=== PATIENT | female | born 1940 | race Two or more races ===

== ENCOUNTER 2017-06-10 07:50 | Outpatient (CLI) | payer OTHER | END 2017-06-10 07:53 | disposition home or self-care (01) | LOC: RAD 07:50 | DX: Z01.818 Encounter for other preprocedural examination (principal) ==

== ENCOUNTER 2017-06-22 14:36 | Inpatient (IN) | payer OTHER ==
[~2017-06-22] VITALS: Ht 152.4 cm; Wt 61.2 kg
[~2017-06-22 14:36] MED LIST: ASPIR 8181 MG PO; ATORVASTATIN CA20 MG PO; LOSARTAN POTASS50 MG PO; MILLIPRED DP5 MG PO; RELAFEN PO; SINGULEAR PO; ULTRAM50 MG PO
[2017-07-02] MEDS ORDERED: XARELTO10 MG PO (08:36)
[2017-07-02] MEDS ORDERED: OXYC1TAB9 PO (08:36)
[2017-07-02] MEDS ORDERED: INTEGRA PLUS C1 EACH PO (08:36)
== END 2017-07-02 13:41 | DRG 470 ==
LOC: O/R 06-29 05:10 → SURH 06-29 05:10 → SURG-SUITE 06-29 07:00 → SURH 06-29 13:03
PROVIDERS: Orthopaedic Surgery Sports Medicine
PROC: 0SRC0J9 Replacement of Right Knee Joint with Synthetic Substitute, Cemented, Open Approach (ICD-10-PCS; principal; 2017-06-29 07:00)
PROC: 3E0F7GC Introduction of Other Therapeutic Substance into Respiratory Tract, Via Natural or Artificial Opening (ICD-10-PCS; principal; 2017-06-29 07:00)
DX: M17.11 Unilateral primary osteoarthritis, right knee (principal); D62 Acute posthemorrhagic anemia; I10 Essential (primary) hypertension; J45.909 Unspecified asthma, uncomplicated

== ENCOUNTER 2020-06-04 08:30 | Inpatient (IN) | payer OTHER ==
[~2020-06-04] VITALS: Ht 152.4 cm; Wt 63.5 kg
[~2020-06-04 08:30] MED LIST changes: +INTEGRA PLUS C1 EACH PO; +OXYC1TAB9 PO; +XARELTO10 MG PO
[2020-06-04] MEDS ORDERED: CRESTOR10 MG PO (14:55)
[2020-06-04] MEDS ORDERED: FASENRA30 MG/1 ML (14:56)
[2020-06-11] MEDS ORDERED: DICLOFENAC SODI50 MG (08:09)
[2020-06-11] MEDS ORDERED: NORVASC2.5 MG (08:09)
[2020-06-11] MEDS ORDERED: TRELEGY ELLIPT1 EACH (08:09)
[2020-06-11] MEDS ORDERED: NABUMETONE750 MG PO (08:10)
[2020-06-11] MEDS ORDERED: SINGULAIR10 MG (08:10)
[2020-06-13] MEDS ORDERED: XARELTO10 MG PO (07:40)
[2020-06-13] MEDS ORDERED: INTEGRA PLUS C1 EACH PO (07:40)
[2020-06-13] MEDS ORDERED: OXYC1TAB9 PO (07:40)
== END 2020-06-13 13:49 | DRG 470 ==
LOC: SURG 06-11 06:05 → O/R 06-11 06:05 → SURH 06-11 08:30 → SURG 06-11 11:33
PROVIDERS: ADMIT Orthopaedic Surgery Sports Medicine; ATTEND Orthopaedic Surgery Sports Medicine
PROC: 0SRD0J9 Replacement of Left Knee Joint with Synthetic Substitute, Cemented, Open Approach (ICD-10-PCS; principal; 2020-06-11 10:45)
DX: M17.12 Unilateral primary osteoarthritis, left knee (principal); I10 Essential (primary) hypertension; D64.9 Anemia, unspecified; Z20.822 Contact with and (suspected) exposure to COVID-19

== ENCOUNTER → 2020-06-04 08:56 | Outpatient (CLI) | payer OTHER ==
[~2020-06-04 08:56] MED LIST changes: +CRESTOR10 MG PO; +DICLOFENAC SODI50 MG; +FASENRA30 MG/1 ML; +NABUMETONE750 MG PO; +NORVASC2.5 MG; +SINGULAIR10 MG; +TRELEGY ELLIPT1 EACH
== END | disposition home or self-care (01) ==
LOC: LAB 08:56
PROVIDERS: ATTEND Orthopaedic Surgery Sports Medicine
DX: D68.8 Other specified coagulation defects (principal); I10 Essential (primary) hypertension

== ENCOUNTER 2024-09-30 10:30 | Outpatient (CLI) | payer OTHER | END 2024-09-30 10:39 | disposition home or self-care (01) | LOC: TOM 10:30 | DX: R19.4 Change in bowel habit (principal) ==